=== PATIENT | female | born 1985 | race Caucasian/White ===

== ENCOUNTER 2024-04-28 14:10 | Outpatient (RCR) | payer BC, SELFPAY | END 2024-04-28 23:59 | disposition home or self-care (01) | LOC: RPT 14:10 | PROVIDERS: ATTENDING PHYSICIAN Radiology Radiation Oncology; FAMILY PHYSICIAN Internal Medicine | DX: C50.412 Malignant neoplasm of upper-outer quadrant of left female breast (principal); Z17.1 Estrogen receptor negative status [ER-]; Z73.6 Limitation of activities due to disability; R20.0 Anesthesia of skin; M79.18 Myalgia, other site | CPT/HCPCS: 97110; 97140; 97163; 97164; 97535 ==

== ENCOUNTER 2024-05-27 10:17 | Outpatient (RCR) | payer BC, SELFPAY | END 2024-05-27 23:59 | disposition home or self-care (01) | LOC: RPT 10:17 | PROVIDERS: ATTENDING PHYSICIAN Radiology Radiation Oncology; FAMILY PHYSICIAN Internal Medicine | DX: I97.2 Postmastectomy lymphedema syndrome (principal); C50.412 Malignant neoplasm of upper-outer quadrant of left female breast; Z17.1 Estrogen receptor negative status [ER-]; Z73.6 Limitation of activities due to disability | CPT/HCPCS: 97110; 97112; 97140; 97530; 97535 ==

== ENCOUNTER 2024-06-29 10:30 | Outpatient (RCR) | payer BC, SELFPAY | END 2024-06-29 23:59 | disposition home or self-care (01) | LOC: RPT 10:30 | PROVIDERS: ATTENDING PHYSICIAN Radiology Radiation Oncology; FAMILY PHYSICIAN Internal Medicine | DX: C50.412 Malignant neoplasm of upper-outer quadrant of left female breast (principal); Z17.1 Estrogen receptor negative status [ER-]; Z73.6 Limitation of activities due to disability; N94.10 Unspecified dyspareunia; R53.0 Neoplastic (malignant) related fatigue | CPT/HCPCS: 97110; 97112; 97140; 97164; 97530; 97535 ==

== ENCOUNTER 2024-07-19 14:48 | Outpatient (RCR) | payer BC, SELFPAY | END 2024-07-19 23:59 | disposition home or self-care (01) | LOC: RPT 14:48 | PROVIDERS: ATTENDING PHYSICIAN Radiology Radiation Oncology; FAMILY PHYSICIAN Internal Medicine | DX: Z73.6 Limitation of activities due to disability (principal); C50.412 Malignant neoplasm of upper-outer quadrant of left female breast; Z17.1 Estrogen receptor negative status [ER-]; N94.10 Unspecified dyspareunia; R53.0 Neoplastic (malignant) related fatigue | CPT/HCPCS: 97110; 97112; 97140; 97530 ==

== ENCOUNTER 2024-09-26 09:59 | Outpatient (RCR) | payer BC, SELFPAY | END 2024-09-26 23:59 | disposition home or self-care (01) | LOC: RPT 09:59 | PROVIDERS: ATTENDING PHYSICIAN Radiology Radiation Oncology; FAMILY PHYSICIAN Internal Medicine | DX: C50.412 Malignant neoplasm of upper-outer quadrant of left female breast (principal); Z17.1 Estrogen receptor negative status [ER-]; N39.3 Stress incontinence (female) (male); Z90.710 Acquired absence of both cervix and uterus; Z73.6 Limitation of activities due to disability; N94.10 Unspecified dyspareunia; R53.0 Neoplastic (malignant) related fatigue | CPT/HCPCS: 97014; 97110; 97112; 97140; 97164; 97530 ==

== ENCOUNTER 2024-10-24 11:03 | Outpatient (RCR) | payer BC, SELFPAY | END 2024-10-24 23:59 | disposition home or self-care (01) | LOC: RPT 11:03 | PROVIDERS: ATTENDING PHYSICIAN Radiology Radiation Oncology; FAMILY PHYSICIAN Internal Medicine | DX: C50.412 Malignant neoplasm of upper-outer quadrant of left female breast (principal); Z17.1 Estrogen receptor negative status [ER-]; N39.3 Stress incontinence (female) (male); Z73.6 Limitation of activities due to disability; N94.10 Unspecified dyspareunia; R53.0 Neoplastic (malignant) related fatigue; Z90.710 Acquired absence of both cervix and uterus | CPT/HCPCS: 97110; 97140; 97530 ==

== ENCOUNTER 2024-11-21 14:54 | Outpatient (RCR) | payer BC, SELFPAY | END 2024-11-21 23:59 | disposition home or self-care (01) | LOC: RPT 14:54 | PROVIDERS: ATTENDING PHYSICIAN Radiology Radiation Oncology; FAMILY PHYSICIAN Internal Medicine | DX: C50.412 Malignant neoplasm of upper-outer quadrant of left female breast (principal); Z17.1 Estrogen receptor negative status [ER-]; N39.3 Stress incontinence (female) (male); Z73.6 Limitation of activities due to disability; N94.10 Unspecified dyspareunia; R53.0 Neoplastic (malignant) related fatigue; M62.81 Muscle weakness (generalized); Z90.710 Acquired absence of both cervix and uterus | CPT/HCPCS: 97110; 97140; 97530 ==

== ENCOUNTER 2024-12-01 13:23 | Outpatient (RCR) | payer BC, SELFPAY | END 2024-12-01 23:59 | disposition home or self-care (01) | LOC: RPT 13:23 | PROVIDERS: ATTENDING PHYSICIAN Radiology Radiation Oncology; FAMILY PHYSICIAN Internal Medicine | DX: C50.412 Malignant neoplasm of upper-outer quadrant of left female breast (principal); N39.3 Stress incontinence (female) (male); Z73.6 Limitation of activities due to disability; Z17.1 Estrogen receptor negative status [ER-]; N94.10 Unspecified dyspareunia; R53.0 Neoplastic (malignant) related fatigue; M62.81 Muscle weakness (generalized); Z90.710 Acquired absence of both cervix and uterus | CPT/HCPCS: 97140; 97530 ==